=== PATIENT | female | born 1985 ===

== ENCOUNTER 2017-09-06 12:19 | Emergency (ER) | payer MEDICAID, OTHER ==
[2017-09-06 12:19] VITALS: BMI 35.7
[2017-09-06 12:56] VITALS: BP 127/89; PULSE 97; RESP 16; TEMP 98.5; O2SAT 98
--- NOTE | 2017-09-06 13:53 | C.PDOC ---
History Of Present Illness 32 y/o female presents to ED with complaints of left foot pain for 6 days. Patient states she was running away from mouse and following day developed pain to bottom of left foot. Patient reports swelling has improved but states pain persists when walking. Denies change in sensation, twisting or direct trauma. No other complaints at this time. Time Seen by Provider: 09/06/17 13:14 Chief Complaint (Nursing): Lower Extremity Problem/Injury History Per: Patient History/Exam Limitations: no limitations Onset/Duration Of Symptoms: Days Past Medical History Reviewed: Historical Data, Nursing Documentation, Vital Signs Vital Signs: Last Vital Signs Temp 98.5 F 09/06/17 12:53 Pulse 97 H 09/06/17 12:53 Resp 16 09/06/17 12:53 BP 127/89 09/06/17 12:53 Pulse Ox 98 09/06/17 14:18 - Medical History PMH: Anxiety, Bipolar Disorder, Depression, Schizophrenia Surgical History: No Surg Hx - [facility] Procedures MONITORING NOS (05/30/15) GROUP PSYCHOTHERAPY (08/20/17) INDIVID PSYCHOTHERAP NEC (05/07/15) INDIVIDUAL PSYCHOTHERAPY, BEHAVIORAL (10/16/15) INDIVIDUAL PSYCHOTHERAPY, COGNITIVE-BEHAVIORAL (04/09/17) INDIVIDUAL PSYCHOTHERAPY, SUPPORTIVE (08/20/17) INJECT/INFUSE NEC (03/02/15) OTHER GROUP THERAPY (05/07/15) PSYCHIA INTERV/EVAL NEC (05/30/15) PSYCHIAT DRUG THERAP NEC (10/15/14) Family History: States: No Known Family Hx - Social History Hx Alcohol Use: No Hx Substance Use: Yes (marijuana) - Immunization History Hx Tetanus Toxoid Vaccination: No Hx Influenza Vaccination: Yes Hx Pneumococcal Vaccination: No Review Of Systems Constitutional: Negative for: Fever, Chills Gastrointestinal: Negative for: Nausea, Vomiting Musculoskeletal: Positive for: Foot Pain Skin: Negative for: Rash Neurological: Negative for: Weakness, Numbness Physical Exam - Physical Exam Appears: Non-toxic, No Acute Distress Skin: Warm, Dry, No Rash Head: Atraumatic, Normacephalic Eye(s): bilateral: Normal Inspection, EOMI Nose: Normal Oral Mucosa: Moist Neck: Normal ROM, Supple Chest: Symmetrical Respiratory: No Accessory Muscle Use Back: No CVA Tenderness Extremity: Normal ROM, Tenderness, No Pedal Edema, No Calf Tenderness, Capillary Refill (<2 seconds), No Deformity, Swelling (Mild swelling and tenderness to left arch) Extremity: Bilateral: Normal Color And Temperature, Normal ROM Pulses: Left Dorsalis Pedis: Normal, Right Dorsalis Pedis: Normal Neurological/Psych: Oriented x3, Normal Motor, Normal Sensation ED Course And Treatment O2 Sat by Pulse Oximetry: 98 (RA) Pulse Ox Interpretation: Normal Progress Note: Patient offered xray and declines, requested ice pack and motrin prescription. Discussed shoe inserts and RICE. Disposition - Disposition Disposition: HOME/ ROUTINE Disposition Time: 13:52 Condition: STABLE Additional Instructions: Rest, ice and elevate the area. Use arch support insert in your shoes. Follow up with your PMD in 1-2 days. Prescriptions: Ibuprofen [Motrin] 600 mg PO Q6 PRN #20 tab PRN Reason: Pain, Mild (1-3) Instructions: Ankle Sprain (ED) Forms: [employer] (Trinidadian) - Clinical Impression Clinical Impression: Foot pain - PA / COMMERCIAL FINANCE ANALYST / Resident Statement MD/DO has reviewed & agrees with the documentation as recorded. - Scribe Statement The provider has reviewed the documentation as recorded by the Scribscott Vargas All medical record entries made by the Amrita were at my direction and personally dictated by me. I have reviewed the chart and agree that the record accurately reflects my personal performance of the history, physical exam, medical decision making, and the department course for this patient. I have also personally directed, reviewed, and agree with the discharge instructions and disposition.
== END 2017-09-06 14:17 | disposition home or self-care (01) ==
LOC: C.ER 12:19
DX: M79.672 Pain in left foot (principal)

== ENCOUNTER 2017-11-12 12:35 | Emergency (ER) | payer MEDICAID, OTHER ==
[2017-11-12 12:35] VITALS: BMI 35.7
[2017-11-12] MEDS ORDERED: Sodium Chloride 0.9% 1,000 ML IV ONE (13:23)
[2017-11-12] MEDS ORDERED: Sodium Chloride 0.9% 1,000 ML ONE (13:27)
--- NOTE | 2017-11-12 13:27 | C.PDOC ---
History Of Present Illness 32 year old female presents to ED for evaluation of nausea and vomiting for the last 5 days. Pt states her menstrual period is late by 6 days. Denies any abdominal pain, fever, or any other complaints at this time. Time Seen by Provider: 11/12/17 13:05 Chief Complaint (Nursing): GI Problem History Per: Patient History/Exam Limitations: no limitations Onset/Duration Of Symptoms: Days (5) Current Symptoms Are (Timing): Still Present Severity: None Pain Scale Rating Of: 0 Recent travel outside of the [place]: No Additional History Per: Patient Past Medical History Reviewed: Historical Data, Nursing Documentation, Vital Signs Vital Signs: Last Vital Signs Temp 98.9 F 11/12/17 12:43 Pulse 98 H 11/12/17 12:43 Resp 20 11/12/17 12:43 BP 117/82 11/12/17 12:43 Pulse Ox 97 11/12/17 14:26 - Medical History PMH: Anxiety, Bipolar Disorder, Depression, Schizophrenia Denies: Diabetes, Hepatitis, HIV, HTN, Chronic Kidney Disease, Seizures, Sexually Transmitted Disease Surgical History: Denies: CABG - [facility] Procedures MONITORING NOS (05/30/15) GROUP PSYCHOTHERAPY (08/20/17) INDIVID PSYCHOTHERAP NEC (05/07/15) INDIVIDUAL PSYCHOTHERAPY, BEHAVIORAL (10/16/15) INDIVIDUAL PSYCHOTHERAPY, COGNITIVE-BEHAVIORAL (04/09/17) INDIVIDUAL PSYCHOTHERAPY, SUPPORTIVE (08/20/17) INJECT/INFUSE NEC (03/02/15) OTHER GROUP THERAPY (05/07/15) PSYCHIA INTERV/EVAL NEC (05/30/15) PSYCHIAT DRUG THERAP NEC (10/15/14) Family History: States: Unknown Family Hx - Social History Hx Alcohol Use: No Hx Substance Use: Yes (Used Marijuana before) - Immunization History Hx Tetanus Toxoid Vaccination: No Hx Influenza Vaccination: No Hx Pneumococcal Vaccination: No Review Of Systems Except As Marked, All Systems Reviewed And Found Negative. Constitutional: Negative for: Fever, Chills Gastrointestinal: Positive for: Nausea, Vomiting. Negative for: Abdominal Pain , Diarrhea, Constipation Genitourinary: Negative for: Dysuria, Frequency, Hematuria, Vaginal Discharge, Vaginal Bleeding Musculoskeletal: Negative for: Back Pain Physical Exam - Physical Exam Appears: Non-toxic, No Acute Distress, Other (texting on her phone) Skin: Normal Color, Warm, Dry Head: Atraumatic, Normacephalic Eye(s): bilateral: Normal Inspection Oral Mucosa: Moist Neck: Normal ROM, Supple Chest: Symmetrical Cardiovascular: Rhythm Regular, No Murmur Respiratory: Normal Breath Sounds, No Rales, No Rhonchi, No Wheezing Gastrointestinal/Abdominal: Soft, No Tenderness, No Guarding, No Rebound Back: Normal Inspection Extremity: Normal ROM, No Deformity Neurological/Psych: Oriented x3, Normal Speech ED Course And Treatment - Laboratory Results Result Diagrams: 11/12/17 13:40 11/12/17 13:40 O2 Sat by Pulse Oximetry: 97 (RA) Pulse Ox Interpretation: Normal Medical Decision Making Medical Decision Making: Blood work, urinalysis was ordered and reviewed. Patient was given Zofran, and IV fluids. Labs are unremarkable, pt states she feels comfortable going home. Abdomen remains soft and non-tender. Pt is stable for discharge. Disposition - Disposition Referrals: [facility] [Outside] [facility] [Outside] [facility] [Outside] Disposition: HOME/ ROUTINE Disposition Time: 14:25 Condition: STABLE Additional Instructions: follow up with your doctor. return to er with worsening symptoms or concerns. Instructions: Nausea and Vomiting, Adult Forms: [employer] (Turkmen) Print Language: OCCITAN - Clinical Impression Clinical Impression: Nausea and vomiting - Scribe Statement The provider has reviewed the documentation as recorded by the [facility] All medical record entries made by the Scribe were at my direction and personally dictated by me. I have reviewed the chart and agree that the record accurately reflects my personal performance of the history, physical exam, medical decision making, and the department course for this patient. I have also personally directed, reviewed, and agree with the discharge instructions and disposition.
[2017-11-12 13:48] LABS: BASO # 0.1 K/uL (0.0-0.2); BASO % 1.3 % (0.0-2.0); EOS # 0.2 K/uL (0.0-0.7); HEMOGLOBIN 13.2 g/dL (11.0-16.0); LYMPH # 2.6 K/uL (1.0-4.3); LYMPH % 29.5 % (20.0-40.0); MEAN CELL VOLUME 88.7 fL (81.0-99.0); MEAN CORPUSCULAR HEMOGLOBIN 30.2 pg (27.0-31.0); MEAN CORPUSCULAR HGB CONC 34.1 g/dL (33.0-37.0); MEAN PLATELET VOLUME 8.9 fL (7.2-11.7); MONO # 0.5 K/uL (0.0-0.8); MONO % 5.8 % (0.0-10.0); NEUT # 5.5 K/uL (1.8-7.0); NEUT % 61.4 % (50.0-75.0); RBC 4.37 Mil/uL (3.80-5.20); RED CELL DISTRIBUTION WIDTH 13.5 % (11.5-14.5)
[2017-11-12 13:49] LABS: HCG,QUALITATIVE URINE NEGATIVE (NEGATIVE)
[2017-11-12 13:57] LABS: PROTHROMBIN TIME 11.8 SECONDS (9.7-12.2)
[2017-11-12 13:58] LABS: SQUAMOUS EPITHIAL 13 /hpf (0-5); URINE BILIRUBIN NEGATIVE (NEGATIVE); URINE BLOOD NEGATIVE (NEGATIVE); URINE CLARITY Hazy (Clear); URINE COLOR Yellow (YELLOW); URINE GLUCOSE (UA) NORMAL (Normal); URINE LEUKOCYTE ESTERASE NEG Leu/uL (Negative); URINE PROTEIN NEGATIVE (NEGATIVE); URINE UROBILINOGEN NORMAL mg/dL (0.2-1.0)
[2017-11-12 14:01] LABS: ALB/GLOB RATIO 1.2 (1.0-2.1); ALBUMIN 3.9 g/dL (3.5-5.0); ALT/SGPT 24 U/L (9-52); AST/SGOT 21 U/L (14-36); BLOOD UREA NITROGEN 14 mg/dL (7-17); CALCIUM 9.1 mg/dl (8.6-10.4); GFR AFRICAN-AMERICAN > 60; GFR NON-AFRICAN AMERICAN > 60; LIPASE 40 U/L (23-300)
[2017-11-12 14:34] VITALS: BP 127/86; PULSE 74; RESP 18; TEMP 98; O2SAT 100
== END 2017-11-12 14:34 | disposition home or self-care (01) ==
LOC: C.ER 12:35
DX: R11.2 Nausea with vomiting, unspecified (principal); F20.9 Schizophrenia, unspecified
CPT/HCPCS: 80053; 81001; 83690; 84702; 84703; 85025; 85610; 85730; 96361; 96374; 99284; J2405; J7040

== ENCOUNTER 2018-02-01 11:20 | Emergency (ER) | payer MEDICAID, OTHER ==
[2018-02-01 11:21] VITALS: BMI 35.7
[2018-02-01 12:02] LABS: SQUAMOUS EPITHIAL 4 /hpf (0-5); URINE BACTERIA RARE (<OCC); URINE BILIRUBIN NEGATIVE (NEGATIVE); URINE BLOOD NEGATIVE (NEGATIVE); URINE CLARITY Clear (Clear); URINE COLOR Yellow (YELLOW); URINE GLUCOSE (UA) NORMAL (Normal); URINE LEUKOCYTE ESTERASE NEG Leu/uL (Negative); URINE PROTEIN NEGATIVE (NEGATIVE); URINE UROBILINOGEN NORMAL mg/dL (0.2-1.0)
[2018-02-01] MEDS ORDERED: Sodium Chloride 0.9% 1,000 ML IV ONE (12:13)
[2018-02-01] MEDS ORDERED: Sodium Chloride 0.9% 1,000 ML ONE (12:26)
[2018-02-01 12:28] LABS: BASO # 0.1 K/uL (0.0-0.2); BASO % 0.7 % (0.0-2.0); EOS # 0.2 K/uL (0.0-0.7); EOS % 1.3 % (0.0-4.0); HEMOGLOBIN 13.8 g/dL (11.0-16.0); LYMPH # 3.4 K/uL (1.0-4.3); LYMPH % 23.5 % (20.0-40.0); MEAN CELL VOLUME 89.1 fL (81.0-99.0); MEAN CORPUSCULAR HGB CONC 33.7 g/dL (33.0-37.0); MEAN PLATELET VOLUME 8.7 fL (7.2-11.7); MONO # 0.9 K/uL (0.0-0.8); NEUT # 9.8 K/uL (1.8-7.0); NEUT % 68.5 % (50.0-75.0); RBC 4.58 Mil/uL (3.80-5.20); RED CELL DISTRIBUTION WIDTH 13.8 % (11.5-14.5); WHITE BLOOD COUNT 14.3 K/uL (4.8-10.8)
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
[2018-02-01 12:48] LABS: ALB/GLOB RATIO 1.3 (1.0-2.1); ALBUMIN 4.6 g/dL (3.5-5.0); ALT/SGPT 27 U/L (9-52); AST/SGOT 29 U/L (14-36); BLOOD UREA NITROGEN 7 mg/dL (7-17); CALCIUM 9.2 mg/dl (8.6-10.4); GFR AFRICAN-AMERICAN > 60; GFR NON-AFRICAN AMERICAN > 60; LIPASE 44 U/L (23-300)
[2018-02-01 15:04] VITALS: BP 123/74; PULSE 78; RESP 18; TEMP 98; O2SAT 98
== END 2018-02-01 15:04 | disposition home or self-care (01) ==
LOC: C.ER 11:20
DX: R11.2 Nausea with vomiting, unspecified (principal)
CPT/HCPCS: 80053; 81001; 83690; 84702; 85025; 96374; 99284; J2765; J7030